=== PATIENT | male | born 1975 | race Caucasian/White ===

== ENCOUNTER 2018-07-27 17:51 | Inpatient (IN) ==
--- OUTSIDE RECORDS SUMMARY | 2018-07-27 17:55 | External Medical Summary | Continuity of Care Document ---
:1975 Author Name Rin Colin Address Unavailable Unavailable , Care Team Providers Name Role Phone NonMNPG MJose Unavailable [email or web address] [email or web address] Unavailable Unavailable Unavailable Unavailable Unavailable Problems Memory loss (780.93) (R41.3) Urinary frequency (788.41) (R35.0) Dysuria (788.1) (R30.0) UTI (urinary tract infection) (599.0) (N39.0) Nephrolithiasis (592.0) (N20.0) Strain Of Biceps Tendon (840.8) Degeneration of cervical intervertebral disc (722.4) (M50.30 ) Tremor (781.0) (R25.1) Arthritis (716.90) (M19.90) Psychological disorder (300.9) (F99) Kidney disease (593.9) (N28.9) Depression (311) (F32.9) Generalized anxiety disorder (300.02) (F41.1) Psoriatic arthropathy (696.0) (L40.50) Rheumatoid arthritis (714.0) (M06.9) Allergies and Adverse Reactions No Known Drug Allergies (Allergy) Bee sting (Allergy) Fish (Allergy) Medications Ibuprofen TABS Refills: 0 Citalopram Hydrobromide 10 MG Oral Tablet; TAKE 1 TABLET TERRI LY. Refills: 0 Procedures History of Knee Surgery Status: Complete d History of Shoulder Surgery Status: Comp leted History of Cholecystectomy Status: Compl eted History of Heart Surgery Status: Complet ed History of Renal Lithotripsy Status: Com pleted History of Kidney Surgery Status: Comple cole Immunizations Immunizations not documented Family History Mother Family history of diabetes mellitus (V18.0) (Z83.3) Status: Active Father Family history of hypertension (V17.49) (Z82.49) Status: Act charles Family history of kidney stones (V18.69) (Z84.1) Status: Act charles Grandfather Family history of malignant neoplasm (V16.9) (Z80.9) Status: Active Family history of cardiac disorder (V17.49) (Z82.49) Status: Active aunt Family history of malignant neoplasm (V16.9) (Z80.9) Status: Active Social History - Smoking Status Former smoker Plan of Treatment Planned Observations Planned Goals not documented Results No Known Results Results not documented
[2018-07-27] MEDS ORDERED: MoRPHine SULFATE 4 MG/ML 1 ML CARP\\VIAL IV STA ×2 (18:55→21:33)
[2018-07-27] MEDS ORDERED: ONDANSETRON INJ 2 MG/ML 2 ML VIAL IV STA (18:55)
[2018-07-27 19:18] LABS: Appearance Urine Clear (Clear); Basophils # (auto) 0.06 K/uL (0-0.2); Basophils % (auto) 0.5 %; Bilirubin Urine Negative (Negative); Blood Urine Negative (Negative); Color Urine Yellow; Eosinophils % (auto) 5.4 %; Glucose Urine UA Negative (Negative); Hematocrit (blood only) 41.2 % (42-52); Hemoglobin 14.7 g/dL (14.0-18.0); Immature Granulocytes # (auto) 0.08 K/uL (0.00-0.02); Immature Granulocytes % (auto) 0.7 %; Ketones Urine Negative (Negative); Leukocyte Esterase Urine Negative (Negative); Lymphocytes # (auto) 2.21 K/uL (1.2-3.4); Lymphocytes % (auto) 19.9 %; Mean Corpuscular Hgb Conc 35.7 g/dL (32-36); Mean Corpuscular Volume 90.5 fL (80-100); Mean Platelet Volume 9.2 fL (7.4-10.4); Monocytes % (auto) 6.3 %; Neutrophils # (auto) 7.43 K/uL (1.4-6.5); Neutrophils % (auto) 67.2 %; Nitrite Urine Negative (Negative); Platelet Count 223 K/uL (130-400); Protein Urine Negative (Negative); RDW Coefficient of Variation 13.4 % (11.5-14.5); RDW Standard Deviation 44.2 fL (36.4-46.3); Red Blood Count 4.55 M/uL (4.7-6.1); Specific Gravity Urine 1.025 (1.000-1.030); Urobilinogen Urine Negative (Negative); White Blood Count 11.08 K/uL (4.8-10.8); pH Urine 5.5 (4.5-7.5)
[2018-07-27 20:27] LABS: Albumin Globulin Ratio 1.3 (0.9-2); Albumin Level 3.8 gm/dl (3.4-5.0); BUN Creatinine Ratio 18.3 (10-20); Bilirubin,Total 0.4 mg/dl (0.2-1); Calcium 9.2 mg/dl (8.5-10.1); Creatinine Clr Calc Pharmacy 86.4 ml/min; Est GFR (African American) 77.8; Est GFR (Non-African American) 67.1; Total Protein 6.8 gm/dl (6.4-8.2)
[2018-07-27] MEDS ORDERED: IOVERSOL 100ml IV PRN (21:09)
--- NOTE | 2018-07-27 21:28 | CT Scan Report ---
CT OF THE ABDOMEN AND PELVIS WITH CONTRAST CLINICAL HISTORY: Left lower quadrant pain. GI bleed. COMPARISON STUDY: CT of the abdomen and pelvis December 11, 2013. TECHNIQUE: Following IV administration of 95 mL of Optiray-320, axial images of the abdomen and pelvi s were obtained from the lung bases to the proximal femurs. Images were reviewed in the axial, sagitt al, and coronal planes. IV contrast was administered without complication. Automated exposure contro l was utilized for the study. A dose lowering technique was utilized adhering to the principles of A MAJO. CT DOSE: 568.04 mGy.cm FINDINGS: Lung bases are unremarkable. The liver, spleen, adrenal glands and pancreas are unremarkabl e. There is no biliary ductal dilatation status post cholecystectomy. A few small left renal calculi measure up to 3 mm. There are no ureteral. There is no hydronephrosis or hydroureter. Colonic diverti culosis is noted without evidence for acute diverticulitis. The caliber and wall thickness of small a nd large bowel are normal. Sensitivity for detection of mucosal lesions is diminished by CT technique but none are identified. No lymphadenopathy or ascites. Focal dilatation of the distal right ureter is unchanged and CT of December 11, 2013. No suspicious osseous lesion is noted. Major vasculature is patent. IMPRESSION: 1. No acute process within the abdomen or pelvis. 2. Decreased sensitivity for detection mucosal lesions given CT technique but none identified. 3. Left-sided nephrolithiasis. No ureteral calculi or hydronephrosis. Electronically signed by: Stevo Rowland M.D. 07/27/2018 9:27 PM
[2018-07-27] MEDS ORDERED: PANTOprazole 80 MG in DEXTROSE 5% 100 ML IV SCH (23:00)
[2018-07-27] MEDS: PANTOprazole 40 MG in DEXTROSE 5% 100 ML IV SCH (23:10)
--- NOTE | 2018-07-27 23:35 | Emergency Department Note ---
Entered by Jacinta Silveira acting as a scribe for History of Present Illness General Chief complaint: GI Assessment Stated complaint: BLOOD IN STOOL Source: patient Mode of arrival: ambulatory Limitations: no limitations History of Present Illness Provider complaint: Rectal bleed Onset (ago): day(s) (yesterday) Location: buttocks (rectum) Radiation: non-radiation Pain Consistency: + other (worsening) Maximum Pain Intensity: 5 Quality: + other (bleeding bright red blood) Associated symptoms: + other (Denies: melena, painful and burning urination); no chest pain and no shortness of breath The patient is a 43 year old male with a history of seizures who presents to the Emergency Room with complaints of a worsening rectal bleed starting yesterday. The patient reports that he went to have a bowel movement yesterday morning when very little stool came out, accompanied by bright red blood with blood clots. He notes that he did not strain. He states that he experienced a total of 5-6 such episodes yesterday and another 5 today. He reports that he has never experienced this before. He indicates [facility] and was subsequently referred to the ED. He denies any melena, chest pain, shortness of breath, and painful and burning urination. He also denies a history of stomach ulcers. The patient notes that he takes anywhere from 800-160 mg Ibuprofen daily. He adds that he is currently on his sixth day of Prednisone for a bronchial flare. Home Medications Home Medications Medication Instructions Recorded Confirmed Type carbamazepine 300 mg PO TID 07/27/18 07/27/18 History citalopram 40 mg PO QAM 07/27/18 07/27/18 History gabapentin 300 mg PO TID 07/27/18 07/27/18 History ibuprofen 200 mg PO Q6H PRN 07/27/18 07/27/18 History prazosin 2 mg PO HS 07/27/18 07/27/18 History Allergies Allergy/AdvReac Type Severity Reaction Status Date / Time bee venom protein (honey bee) Allergy Severe ANAPHYLACTIC Verified 07/27/18 19:11 REACTION-HAS EPIPEN AVAILABLE tuna oil Allergy Intermediate SWELLING, Verified 07/27/18 19:11 HIVES Past Med/Surg History Medical History Pseudoseizure (Acute) Seizure (Acute) Seizure disorder in , delivered with condition (Acute) Social History Preferred Language: Nepali Communication Ability: Effective Lead Data Entry Operator Required: No Beliefs That Will Affect Care: None marital status: single Current Living Situation: Spouse current occupational status: employed Feels Safe at Home: Yes Safety Concerns: Feels Safe At This Time Smoking Status: Never smoker Hx Alcohol Use: No Hx Substance Use: No Review of Systems See HPI for pertinent positives & negatives. and A total of 10 systems reviewed and were otherwise negative Physical Exam Vital Signs Vital Signs - 24 hr 07/27/18 18:10 07/27/18 19:10 07/27/18 19:14 Temperature 36.8 C Temperature Source Oral Sepsis Recent Fever Within 48 Hours No Sepsis Action Taken by Nursing No Action Required Pulse Rate 87 84 90 Pulse Rate from SpO2 Sensor 83 90 Pulse Rhythm Regular Pulse Strength Normal Respiratory Rate 20 21 14 Respiratory Effort / Characteristics Non-Labored Spontaneous Respiratory Depth Normal Respiratory Pattern Regular Blood Pressure 153/80 H 141/77 H Blood Pressure Mean 104 98 Blood Pressure Position Sitting Pulse Oximetry 98 95 96 Oxygen Delivery Method Room Air 07/27/18 19:30 07/27/18 19:31 07/27/18 20:00 Temperature Temperature Source Sepsis Recent Fever Within 48 Hours Sepsis Action Taken by Nursing Pulse Rate 74 78 87 Pulse Rate from SpO2 Sensor 75 80 88 Pulse Rhythm Pulse Strength Respiratory Rate 18 22 19 Respiratory Effort / Characteristics Respiratory Depth Respiratory Pattern Blood Pressure 128/75 136/83 Blood Pressure Mean 92 100 Blood Pressure Position Pulse Oximetry 93 93 97 Oxygen Delivery Method 07/27/18 20:30 07/27/18 21:00 07/27/18 21:30 Temperature Temperature Source Sepsis Recent Fever Within 48 Hours Sepsis Action Taken by Nursing Pulse Rate 71 Pulse Rate from SpO2 Sensor 83 81 73 Pulse Rhythm Pulse Strength Respiratory Rate 31 H 27 H 17 Respiratory Effort / Characteristics Respiratory Depth Respiratory Pattern Blood Pressure 125/75 126/79 118/68 Blood Pressure Mean 91 94 84 Blood Pressure Position Pulse Oximetry 96 97 95 Oxygen Delivery Method 07/27/18 21:31 07/27/18 22:00 07/27/18 22:01 Temperature Temperature Source Sepsis Recent Fever Within 48 Hours Sepsis Action Taken by Nursing Pulse Rate 73 72 74 Pulse Rate from SpO2 Sensor 73 74 75 Pulse Rhythm Pulse Strength Respiratory Rate 20 22 24 Respiratory Effort / Characteristics Respiratory Depth Respiratory Pattern Blood Pressure 125/84 Blood Pressure Mean 97 Blood Pressure Position Pulse Oximetry 96 94 94 Oxygen Delivery Method 07/27/18 22:30 Temperature Temperature Source Sepsis Recent Fever Within 48 Hours Sepsis Action Taken by Nursing Pulse Rate 78 Pulse Rate from SpO2 Sensor 78 Pulse Rhythm Pulse Strength Respiratory Rate 21 Respiratory Effort / Characteristics Respiratory Depth Respiratory Pattern Blood Pressure 135/88 Blood Pressure Mean 103 Blood Pressure Position Pulse Oximetry 96 Oxygen Delivery Method GENERAL: sitting up in bed, alert, well appearing, well nourished, no distress, non-toxic EYE EXAM: normal conjunctiva OROPHARYNX: no exudate, no erythema, lips, buccal mucosa, and tongue normal and mucous membranes are moist NECK: supple, no nuchal rigidity, no adenopathy, non-tender LUNGS: Clear to auscultation. Normal chest wall mechanics HEART: no murmurs, S1 normal and S2 normal ABDOMEN: abdomen soft, normo-active bowel sounds, no masses, no rebound or guarding. Tender to palpation of the left lower quadrant. BACK: Back is symmetrical on inspection and there is no deformity, no midline tenderness, no CVA tenderness. RECTAL: Heme positive, no hemorrhoids or fissures. SKIN: no rashes and no bruising UPPER EXTREMITIES: upper extremities are grossly normal. LOWER EXTREMITIES: No pitting edema. NEURO EXAM: Normal sensorium, cranial nerves II-XII grossly intact, normal speech, no gross weakness of arms, no gross weakness of legs. Course ED COURSE: Vital signs were reviewed and were normal. The patients medical record was reviewed The above diagnostic studies were performed and reviewed. ED treatments and interventions as stated above. 1842: The patient was evaluated in room C6. A complete history and physical examination was performed. 2203: I reviewed the patient's case with Timothy Soto. Dr. Swain will evaluate the patient for further management. Based on the patients age, coexisting illnesses, exam and lab findings the decision to treat as an inpatient was made. The patient remained stable while under my care. The patient will be evaluated for further management. Consultations Consultation #1: I reviewed the patient's case with Timothy Soto. Dr. Swain will evaluate the patient for further management. Time: 22:04 Administered Medications Pantoprazole Sodium 40 mg/ (Dextrose) 100 mls @ 20 mls/hr IV Q5H [facility] Stop: 08/26/18 23:14 Last Admin: 07/27/18 23:10 Dose: 20 mls/hr Documented by: [id number] Ioversol (Optiray 320 100ml) 95 ml IV ONCE PRN PRN Reason: Interaction Checking Stop: 07/31/18 21:08 Last Admin: 07/27/18 21:10 Dose: 1 ml Documented by: [id number] Discontinued Medications Pantoprazole Sodium 80 mg/ (Dextrose) 120 mls @ 480 mls/hr IV TODAY@2300 SHALINI Stop: 07/27/18 23:14 Last Admin: 07/27/18 23:10 Dose: 480 mls/hr Documented by: [id number] Morphine Sulfate (Morphine Sulfate) 4 mg IV NOW STA Stop: 07/27/18 18:56 Last Admin: 07/27/18 19:13 Dose: 4 mg Documented by: [id number] Morphine Sulfate (Morphine Sulfate) 4 mg IV NOW STA Stop: 07/27/18 21:34 Last Admin: 07/27/18 21:39 Dose: 4 mg Documented by: [id number] Ondansetron HCl (Zofran) 4 mg IV NOW STA Stop: 07/27/18 18:56 Last Admin: 07/27/18 19:13 Dose: 4 mg Documented by: [id number] Medical Decision Making Differential Diagnosis Differential diagnosis: Etiologies such as diverticulosis, AVM, coagulopathy, colitis, inflammatory bowel disease, malignancy, Carli-Perez tear, esophagitis, peptic ulcer disease, variceal bleed, gastritis, epistaxis, fissure, hemorrhoids, aswell as others were entertained. Medical Records Attestation: I reviewed the patient's medical records. Home Medications Current Medication List: was personally reviewed by me Laboratory Data Attestation: I reviewed the patient's lab results. Result diagrams: 07/27/18 19:08 07/27/18 19:08 Lab Results 07/27/18 07/27/18 07/27/18 Range/Units 19:08 19:08 19:08 WBC 11.08 H (4.8-10.8) K/uL RBC 4.55 L (4.7-6.1) M/uL Hgb 14.7 (14.0-18.0) g/dL Hct 41.2 L (42-52) % MCV 90.5 (80-100) fL MCH 32.3 (25-34) pg MCHC 35.7 (32-36) g/dL RDW Std Deviation 44.2 (36.4-46.3) fL RDW Coeff of Karen 13.4 (11.5-14.5) % Plt Count 223 (130-400) K/uL MPV 9.2 (7.4-10.4) fL Immature Gran % (Auto) 0.7 % Neut % (Auto) 67.2 % Lymph % (Auto) 19.9 % Furnas % (Auto) 6.3 % Eos % (Auto) 5.4 % Baso % (Auto) 0.5 % Immature Gran # (Auto) 0.08 H (0.00-0.02) K/uL Neut # (Auto) 7.43 H (1.4-6.5) K/uL Lymph # (Auto) 2.21 (1.2-3.4) K/uL Furnas # (Auto) 0.70 H (0.11-0.59) K/uL Eos # (Auto) 0.60 H (0-0.5) K/uL Baso # (Auto) 0.06 (0-0.2) K/uL Sodium 143 (136-145) mmol/L Potassium (3.5-5.1) mmol/L Chloride 109 H (98-107) mmol/L Carbon Dioxide 25 (21-32) mmol/L Anion Gap 9.0 (3-11) BUN 23 H (7-18) mg/dl Creatinine 1.28 (0.6-1.4) mg/dl Est Cr Clr Drug Dosing 86.4 ml/min Est GFR ( Amer) 77.8 Est GFR (Non-Af Amer) 67.1 BUN/Creatinine Ratio 18.3 (10-20) Glucose 118 H (70-99) mg/dl Calcium 9.2 (8.5-10.1) mg/dl Total Bilirubin 0.4 (0.2-1) mg/dl AST (15-37) U/L ALT 51 (12-78) U/L Alkaline Phosphatase 85 (45-117) U/L Total Protein 6.8 (6.4-8.2) gm/dl Albumin 3.8 (3.4-5.0) gm/dl Globulin 3.0 (2.5-4.0) gm/dl Albumin/Globulin Ratio 1.3 (0.9-2) Lipase 208 (73-393) U/L Urine Color Yellow Urine Appearance Clear (Clear) Urine pH 5.5 (4.5-7.5) Ur Specific Cobalt 1.025 (1.000-1.030) Urine Protein Negative (Negative) Urine Glucose (UA) Negative (Negative) Urine Ketones Negative (Negative) Urine Blood Negative (Negative) Urine Nitrite Negative (Negative) Urine Bilirubin Negative (Negative) Urine Urobilinogen Negative (Negative) Ur Leukocyte Esterase Negative (Negative) 07/27/18 07/27/18 Range/Units 20:35 21:39 WBC (4.8-10.8) K/uL RBC (4.7-6.1) M/uL Hgb (14.0-18.0) g/dL Hct (42-52) % MCV (80-100) fL MCH (25-34) pg MCHC (32-36) g/dL RDW Std Deviation (36.4-46.3) fL RDW Coeff of Karen (11.5-14.5) % Plt Count (130-400) K/uL MPV (7.4-10.4) fL Immature Gran % (Auto) % Neut % (Auto) % Lymph % (Auto) % Furn[place] % (Auto) % Eos % (Auto) % Baso % (Auto) % Immature Gran # (Auto) (0.00-0.02) K/uL Neut # (Auto) (1.4-6.5) K/uL Lymph # (Auto) (1.2-3.4) K/uL Furnas # (Auto) (0.11-0.59) K/uL Eos # (Auto) (0-0.5) K/uL Baso # (Auto) (0-0.2) K/uL Sodium (136-145) mmol/L Potassium Cancelled Cancelled (3.5-5.1) mmol/L Chloride (98-107) mmol/L Carbon Dioxide (21-32) mmol/L Anion Gap (3-11) BUN (7-18) mg/dl Creatinine (0.6-1.4) mg/dl Est Cr Clr Drug Dosing ml/min Est GFR ( Amer) Est GFR (Non-Af Amer) BUN/Creatinine Ratio (10-20) Glucose (70-99) mg/dl Calcium (8.5-10.1) mg/dl Total Bilirubin (0.2-1) mg/dl AST Cancelled Cancelled (15-37) U/L ALT (12-78) U/L Alkaline Phosphatase (45-117) U/L Total Protein (6.4-8.2) gm/dl Albumin (3.4-5.0) gm/dl Globulin (2.5-4.0) gm/dl Albumin/Globulin Ratio (0.9-2) Lipase (73-393) U/L Urine Color Urine Appearance (Clear) Urine pH (4.5-7.5) Ur Specific Cobalt (1.000-1.030) Urine Protein (Negative) Urine Glucose (UA) (Negative) Urine Ketones (Negative) Urine Blood (Negative) Urine Nitrite (Negative) Urine Bilirubin (Negative) Urine Urobilinogen (Negative) Ur Leukocyte Esterase (Negative) Imaging Data Radiologist's Impression: Radiology results as stated below per my review and the radiologist's interpretation: CT OF THE ABDOMEN AND PELVIS WITH CONTRAST CLINICAL HISTORY: Left lower quadrant pain. GI bleed. COMPARISON STUDY: CT of the abdomen and pelvis December 11, 2013. TECHNIQUE: Following IV administration of 95 mL of Optiray-320, axial images of the abdomen and pelvis were obtained from the lung bases to the proximal femurs. Images were reviewed in the axial, sagittal, and coronal planes. IV contrast was administered without complication. Automated exposure control was utilized for the study. A dose lowering technique was utilized adhering to the principles of ALARA. CT DOSE: 568.04 mGy.cm FINDINGS: Lung bases are unremarkable. The liver, spleen, adrenal glands and pancreas are unremarkable. There is no biliary ductal dilatation status post cholecystectomy. A few small left renal calculi measure up to 3 mm. There are no ureteral. There is no hydronephrosis or hydroureter. Colonic diverticulosis is noted without evidence for acute diverticulitis. The caliber and wall thickness of small and large bowel are normal. Sensitivity for detection of mucosal lesions is diminished by CT technique but none are identified. No lymphadenopathy or ascites. Focal dilatation of the distal right ureter is unchanged and CT of December 11, 2013. No suspicious osseous lesion is noted. Major vasculature is patent. IMPRESSION: 1. No acute process within the abdomen or pelvis. 2. Decreased sensitivity for detection mucosal lesions given CT technique but none identified. 3. Left-sided nephrolithiasis. No ureteral calculi or hydronephrosis. Electronically signed by: Stevo Rowland M.D. 07/27/2018 9:27 PM Blood Pressure Blood Pressure Findings: Normal blood pressure MDM Narrative Patient is a 43-year-old male who presents the ER for bright red blood per rectum which started yesterday. He has had a total of 10-12 episodes of this. He notes about 3 tablespoons to a half a cup of bright red blood. No dark tarry stools. Patient has pain in the left lower quadrant. Labs show no significant leukocytosis or anemia. BMP with LFTs bilirubin and lipase was unremarkable. U A was negative. CT abdomen pelvis shows no acute pathology. Patient was given IV fluids. She was updated bedside. Due to the recurrent bright red blood per rectum I did discuss with hospitalist for observation. Impression & Plan GI bleed Discharge Plan Visit Data Chief Complaint: GI Assessment Stated Complaint: BLOOD IN STOOL ED Provider: Fabián Martins Discharge Problem: GI bleed Patient Disposition: Admitted As Inpatient Forms Stand Alone Forms: My [facility] Prescriptions Prescriptions: No Action citalopram 20 mg tablet 40 mg PO QAM RF: 0 ibuprofen 200 mg Tablet 200 mg PO Q6H PRN (Reason: Pain) RF: 0 prazosin 2 mg capsule 2 mg PO HS RF: 0 carbamazepine 300 mg capsule, ER multiphase 12 hr 300 mg PO TID RF: 0 gabapentin 300 mg capsule 300 mg PO TID RF: 0 Referrals Referrals: Aldo Brooke MD [Primary Care Provider] - Discharge Problem: GI bleed Qualifiers: GI bleed type/associated pathology: unspecified gastrointestinal hemorrhage type Qualified Code(s): K92.2 - Gastrointestinal hemorrhage, unspecified The scribe's documentation has been prepared under my direction and personally reviewed by me in its entirety. I confirm that the note above accurately reflects all work, treatment, procedures, and medical decision making performed by me.
--- NOTE | 2018-07-28 00:26 | History and Physical Report ---
DATE OF ADMISSION: 07/27/2018 CHIEF COMPLAINT: Gastrointestinal bleed. HISTORY OF PRESENT ILLNESS: This is a 43-year-old male with past medical history significant for psoriatic arthropathy, post-traumatic stress disorder and spondylosis of lumbar region who presents with lower gastrointestinal bleed since starting yesterday morning. He states he has multiple episodes of blood per rectum. He has chronic left lower abdominal pain. He had a colonoscopy 10 years ago and it was a poor prep and they could not find anything and he has chronic back pain and knee pain for which he takes ibuprofen frequently 800 mg tablets. Denies any black stools. No nausea or vomiting. Before this episode started, he felt somewhat chills, but denies any fever. He has a cough with yellowish phlegm. He smokes 1 pack of cigarette a week. Drinks alcohol, a couple of beers on the weekends. Denies any headache. No blurred vision. No sore throat. No difficulty swallowing. No chest pain. No shortness of breath. No swelling in the legs. No rash. He states lately he thinks he is bruising easily. Currently, resting comfortably and hemodynamically stable. His laboratories were okay. ALLERGIES: BEE VENOM , TUNA OIL PAST MEDICAL HISTORY: As mentioned above. PAST SURGICAL HISTORY: Status post cardiac catheterization, colonoscopy, EMGs, lithotripsy, knee arthroscopy, cholecystectomy and shoulder arthroscopy. MEDICATIONS: The patient is on gabapentin 300 mg p.o. t.i.d., ibuprofen p.r.n., prazosin 2 mg p.o. at bedtime, carbamazepine 200 mg t.i.d. and citalopram 40 mg p.o. daily. FAMILY HISTORY: Significant for father has psoriasis. Mother has psoriasis. Sister has psoriasis. SOCIAL HISTORY: Smokes 1 pack every week. Alcohol, a couple of beers in the weekends. No drug use as per records. REVIEW OF SYMPTOMS: As per HPI. Rest of the review of symptoms negative. PHYSICAL EXAMINATION: GENERAL: The patient is of moderate build, not in acute distress. VITAL SIGNS: Temperature 36.8, pulse 71, respiratory rate 21, blood pressure 118/68 and oxygen 95% on room air. HEENT: No pallor. No icterus. Pupils are equal, round and reactive to light. NECK: No JVD. No neck masses. No carotid bruit. CARDIOVASCULAR: S1, S2 heard. Regular rate and rhythm. No murmur. No gallop. RESPIRATORY SYSTEM: Normal AP diameter. No accessory muscle use. No wheezing. No crackles. ABDOMEN: Soft. Bowel sounds present. Left lower quadrant tenderness present. Mild guarding. No rigidity. No distention. CENTRAL NERVOUS SYSTEM: Cranial nerves II through XII grossly intact. Nonfocal. EXTREMITIES: No edema. No erythema. LABORATORY DATA: WBC 11.08, hemoglobin 14.7, hematocrit 41.2 and platelets 223. Sodium 143, chloride 109, CO2 of 25, BUN 23, creatinine 1.2, serum glucose 118, calcium 9.2, total bilirubin 0.4, ALT 51, alkaline phosphatase 85, total protein 6.8 and lipase 208. Urinalysis negative. CT abdomen and pelvis, no acute process left-sided nephrolithiasis, no hydronephrosis. ASSESSMENT AND PLAN: This is a 43-year-old male who presents with lower gastrointestinal bleed. 1. Bright red per rectum since yesterday, chronic lower abdominal pain CAT scan done in the Emergency Room was unremarkable. He is taking ibuprofen for his chronic back pain and knee pain and also took prednisone a couple of weeks ago for bronchitis for 6 days course. Differential diagnoses of possible gastric ulcer, diverticular bleed versus irritable bowel syndrome. Currently, hemoglobin is stable. We got blood consent. We will check hemoglobin and hematocrit q. 6 hours, I.V. fluids, n.p.o., I.V. Protonix drip for now and consult Gastroenterology in a.m. and monitor in Med/Surg Tele. 2. Spondylosis of lumbar region without myelopathy, chronic back pain. Continue his home gabapentin . Advised to avoid nsaids. 3. Posttraumatic stress disorder. Continue Celexa and carbamazepine. 4. History of urinary frequency on prazosin 5. Deep venous thrombosis, sequential compression devices for now. 6. Disposition: Admit to Med/Surg Tele. Level 1 full code. MTDD
[2018-07-28] MEDS ORDERED: ACETAMINOPHEN 325 MG TAB PO PRN (00:43)
[2018-07-28] MEDS ORDERED: NITROGLYCERIN SL 0.4 MG/TAB TAB SL PRN (00:43)
[2018-07-28] MEDS ORDERED: ONDANSETRON INJ 2 MG/ML 2 ML VIAL IV PRN (00:43)
[2018-07-28] MEDS: SODIUM CHLORIDE 0.9% 1000ML 1,000 ML IV SCH ×2 (01:21→11:34)
[2018-07-28] MEDS: PANTOprazole 40 MG in DEXTROSE 5% 100 ML IV SCH ×2 (01:21→09:09)
[2018-07-28] MEDS: MoRPHine SULFATE 2 MG/ML CARP IV PRN ×4 (01:30→21:36)
[2018-07-28 08:21] LABS: Basophils # (auto) 0.06 K/uL (0-0.2); Basophils % (auto) 0.8 %; Eosinophils # (auto) 0.32 K/uL (0-0.5); Hematocrit (blood only) 42.2 % (42-52); Hemoglobin 14.3 g/dL (14.0-18.0); Immature Granulocytes # (auto) 0.05 K/uL (0.00-0.02); Immature Granulocytes % (auto) 0.6 %; Lymphocytes % (auto) 25.2 %; Mean Corpuscular Hgb Conc 33.9 g/dL (32-36); Mean Corpuscular Volume 91.5 fL (80-100); Mean Platelet Volume 9.1 fL (7.4-10.4); Monocytes # (auto) 0.66 K/uL (0.11-0.59); Monocytes % (auto) 8.3 %; Neutrophils # (auto) 4.84 K/uL (1.4-6.5); Neutrophils % (auto) 61.1 %; Platelet Count 192 K/uL (130-400); RDW Coefficient of Variation 13.5 % (11.5-14.5); RDW Standard Deviation 44.5 fL (36.4-46.3); Red Blood Count 4.61 M/uL (4.7-6.1); White Blood Count 7.93 K/uL (4.8-10.8)
[2018-07-28] MEDS: GABAPENTIN 300 MG CAP PO SCH ×3 (08:32→20:44)
[2018-07-28 08:33] LABS: Partial Thromboplastin Ratio 0.9; Partial Thromboplastin Time 23.9 Seconds (21.0-31.0); Prothrombin Time 10.3 Seconds (9.0-12.0)
[2018-07-28] MEDS: CARBAMAZEPINE 100 MG CHEW TAB PO SCH ×3 (08:33→20:45)
[2018-07-28] MEDS: CITALOPRAM 20 MG TAB PO SCH (08:33)
[2018-07-28 08:39] LABS: BUN Creatinine Ratio 16.3 (10-20); Creatinine Clr Calc Pharmacy 85.8 ml/min; Est GFR (African American) 78.6; Est GFR (Non-African American) 67.8; Magnesium 2.2 mg/dl (1.8-2.4); Potassium 4.7 mmol/L (3.5-5.1)
--- NOTE | 2018-07-28 09:07 | History & Physical Report ---
Date of Service July 28, 2018 Assessment & Plan (1) Hematochezia: Patient presenting with several days of hematochezia. Of note the patient has had no significant drop in his blood counts since evaluation, in fact his blood count appears to have increased slightly since admission. This suggests that the patient likely has an anorectal etiology such as internal hemorrhoids causing his hematochezia. We are certainly happy to proceed with colonoscopy on Monday to evaluate for evidence of an occult lesion such as underlying malignancy. I discussed the plan with the patient who is in agreement. I would suggest that the patient be on MiraLAX 17 g 3 times today in addition to a full liquid diet until Monday at which time he would then begin a regular bowel preparation. Recommendations No need for IV Protonix from my perspective MiraLAX 17 g 3 times today Patient may have a full liquid diet Bowel preparation on Monday afternoon for colonoscopy on Monday with Dr. Garcia Please call with any questions or concerns History of Present Illness Chief Complaint: Hematochezia Primary Care Provider: Aldo Brooke MD The patient is a 43-year-old male who presents with 48 hours of intermittent hematochezia. The patient states he was is in his usual state of health until when he began to develop bright red blood with bowel movements. He notes having a significant amount of blood with stool only during bowel movements. Occasionally he is noted some clots with the stool. Over the night the patient has had no recurrence of his hematochezia. There is no family history of stomach cancer colon cancer esophageal cancer. The patient does recall having an attempt at a colonoscopy about 10 years ago for symptoms of abdominal discomfort. He notes at that examination was incomplete. Unfortunately we have no records available with regard to this study. The patient's surgical history is notable for a cholecystectomy which was performed approximately 15 years ago for complications associated with abdominal discomfort. The patient denies having dark sticky stool or abdominal discomfort today. Allergies Allergy/AdvReac Type Severity Reaction Status Date / Time bee venom protein (honey bee) Allergy Severe ANAPHYLACTIC Verified 07/27/18 19:11 REACTION-HAS EPIPEN AVAILABLE tuna oil Allergy Intermediate SWELLING, Verified 07/27/18 19:11 HIVES Home Medications Home Medications Medication Instructions Recorded Confirmed Type carbamazepine 300 mg PO TID 07/27/18 07/27/18 History citalopram 40 mg PO QAM 07/27/18 07/27/18 History gabapentin 300 mg PO TID 07/27/18 07/27/18 History ibuprofen 200 mg PO Q6H PRN 07/27/18 07/27/18 History prazosin 2 mg PO HS 07/27/18 07/27/18 History Past Med/Surg History Medical History Pseudoseizure (Acute) Seizure (Acute) Seizure disorder in , delivered with condition (Acute) Social History Preferred Language: Azerbaijani Communication Ability: Effective Torpedo Specialist Required: No Beliefs That Will Affect Care: None marital status: single Current Living Situation: Significant Other current occupational status: employed Feels Safe at Home: Yes Safety Concerns: Feels Safe At This Time Smoking Status: Current some day smoker Tobacco Type: smokeless tobacco Cigarettes Per Day: 3 Do You Dip or Chew Tobacco: Yes Hx Alcohol Use: Yes Alcohol type: beer, wine and hard liquor Hx Substance Use: No Review of Systems no sweats, no malaise and no weight loss no diplopia no ear pain and no tinnitus no change in sputum and no hemoptysis no chest pain with activity and no dyspnea at rest + cramping and + constipation; no bloating, no early satiety, no nausea, no vomiting, no hematemesis, no pain with swallowing, no fecal incontinence and no melena no urinary frequency + back pain and + radicular pain no rash no falls and no paralysis no hopelessness no polydipsia no easy bleeding, no coagulopathy and no unexplained weight loss no lip swelling, no tongue swelling and no cough Physical Exam Constitutional: well developed, well nourished and average body habitus; not ill appearing Eyes: PERRL, conjunctivae normal, anicteric sclerae Neck: trachea midline, no thyromegaly Respiratory: normal respiratory effort, lungs clear to auscultation Cardiovascular: RRR, no murmur, no edema Gastrointestinal (Abdomen): Inspection/Auscultation: abdomen not distended and no visible herniation Percussion/Palpation: abdomen soft; no guarding Skin: no rashes, warm and dry Neurologic: moves all extremities and awake; no focal motor deficits, not confused and not obtunded Psychiatric: Orientation: oriented x 3 Results & Data Vital Signs (Past 12 Hours) Vital Signs Temp Pulse Pulse Pulse Resp BP BP 07/28/18 07:43 66 07/28/18 07:23 36.6 C 75 16 102/63 07/27/18 23:52 36.8 C 96 H 21 132/82 07/27/18 23:18 36.8 C 71 16 146/90 H 07/27/18 22:30 78 21 135/88 07/27/18 22:01 74 24 07/27/18 22:00 72 22 125/84 07/27/18 21:31 73 20 07/27/18 21:30 71 17 118/68 07/27/18 21:00 27 H 126/79 Pulse Ox 07/28/18 07:43 07/28/18 07:23 97 07/27/18 23:52 96 07/27/18 23:18 97 07/27/18 22:30 96 07/27/18 22:01 94 07/27/18 22:00 94 07/27/18 21:31 96 07/27/18 21:30 95 07/27/18 21:00 97 Laboratory Results Laboratory Results - last 24 hr 07/27/18 07/27/18 07/27/18 19:08 19:08 19:08 WBC 11.08 H RBC 4.55 L Hgb 14.7 Hct 41.2 L MCV 90.5 MCH 32.3 MCHC 35.7 RDW Std Deviation 44.2 RDW Coeff of Karen 13.4 Plt Count 223 MPV 9.2 Immature Gran % (Auto) 0.7 Neut % (Auto) 67.2 Lymph % (Auto) 19.9 Ward % (Auto) 6.3 Eos % (Auto) 5.4 Baso % (Auto) 0.5 Immature Gran # (Auto) 0.08 H Neut # (Auto) 7.43 H Lymph # (Auto) 2.21 Ward # (Auto) 0.70 H Eos # (Auto) 0.60 H Baso # (Auto) 0.06 PT INR APTT PTT Ratio Sodium 143 Potassium Chloride 109 H Carbon Dioxide 25 Anion Gap 9.0 BUN 23 H Creatinine 1.28 Est Cr Clr Drug Dosing 86.4 Est GFR ( Amer) 77.8 Est GFR (Non-Af Amer) 67.1 BUN/Creatinine Ratio 18.3 Glucose 118 H Calcium 9.2 Magnesium Total Bilirubin 0.4 AST ALT 51 Alkaline Phosphatase 85 Total Protein 6.8 Albumin 3.8 Globulin 3.0 Albumin/Globulin Ratio 1.3 Lipase 208 Urine Color Yellow Urine Appearance Clear Urine pH 5.5 Ur Specific [place] 1.025 Urine Protein Negative Urine Glucose (UA) Negative Urine Ketones Negative Urine Blood Negative Urine Nitrite Negative Urine Bilirubin Negative Urine Urobilinogen Negative Ur Leukocyte Esterase Negative 07/27/18 07/27/18 07/28/18 20:35 21:39 08:14 WBC 7.93 RBC 4.61 L Hgb 14.3 Hct 42.2 MCV 91.5 MCH 31.0 MCHC 33.9 RDW Std Deviation 44.5 RDW Coeff of Karen 13.5 Plt Count 192 MPV 9.1 Immature Gran % (Auto) 0.6 Neut % (Auto) 61.1 Lymph % (Auto) 25.2 Ward % (Auto) 8.3 Eos % (Auto) 4.0 Baso % (Auto) 0.8 Immature Gran # (Auto) 0.05 H Neut # (Auto) 4.84 Lymph # (Auto) 2.00 Ward # (Auto) 0.66 H Eos # (Auto) 0.32 Baso # (Auto) 0.06 PT INR APTT PTT Ratio Sodium Potassium Cancelled Cancelled Chloride Carbon Dioxide Anion Gap BUN Creatinine Est Cr Clr Drug Dosing Est GFR ( Amer) Est GFR (Non-Af Amer) BUN/Creatinine Ratio Glucose Calcium Magnesium Total Bilirubin AST Cancelled Cancelled ALT Alkaline Phosphatase Total Protein Albumin Globulin Albumin/Globulin Ratio Lipase Urine Color Urine Appearance Urine pH Ur Specific [place] Urine Protein Urine Glucose (UA) Urine Ketones Urine Blood Urine Nitrite Urine Bilirubin Urine Urobilinogen Ur Leukocyte Esterase 07/28/18 07/28/18 08:14 08:14 WBC RBC Hgb Hct MCV MCH MCHC RDW Std Deviation RDW Coeff of Karen Plt Count MPV Immature Gran % (Auto) Neut % (Auto) Lymph % (Auto) Ward % (Auto) Eos % (Auto) Baso % (Auto) Immature Gran # (Auto) Neut # (Auto) Lymph # (Auto) Ward # (Auto) Eos # (Auto) Baso # (Auto) PT 10.3 INR 1.0 APTT 23.9 PTT Ratio 0.9 Sodium 144 Potassium 4.7 Chloride 111 H Carbon Dioxide 28 Anion Gap 6.0 BUN 21 H Creatinine 1.27 Est Cr Clr Drug Dosing 85.8 Est GFR ( Amer) 78.6 Est GFR (Non-Af Amer) 67.8 BUN/Creatinine Ratio 16.3 Glucose 96 Calcium 9.0 Magnesium 2.2 Total Bilirubin AST ALT Alkaline Phosphatase Total Protein Albumin Globulin Albumin/Globulin Ratio Lipase Urine Color Urine Appearance Urine pH Ur Specific [place] Urine Protein Urine Glucose (UA) Urine Ketones Urine Blood Urine Nitrite Urine Bilirubin Urine Urobilinogen Ur Leukocyte Esterase Diagnostic Findings CT OF THE ABDOMEN AND PELVIS WITH CONTRAST CLINICAL HISTORY: Left lower quadrant pain. GI bleed. COMPARISON STUDY: CT of the abdomen and pelvis December 11, 2013. TECHNIQUE: Following IV administration of 95 mL of Optiray-320, axial images of the abdomen and pelvis were obtained from the lung bases to the proximal femurs. Images were reviewed in the axial, sagittal, and coronal planes. IV contrast was administered without complication. Automated exposure control was utilized for the study. A dose lowering technique was utilized adhering to the principles of ALARA. CT DOSE: 568.04 mGy.cm FINDINGS: Lung bases are unremarkable. The liver, spleen, adrenal glands and pancreas are unremarkable. There is no biliary ductal dilatation status post cholecystectomy. A few small left renal calculi measure up to 3 mm. There are no ureteral. There is no hydronephrosis or hydroureter. Colonic diverticulosis is noted without evidence for acute diverticulitis. The caliber and wall thickness of small and large bowel are normal. Sensitivity for detection of mucosal lesions is diminished by CT technique but none are identified. No lymphadenopathy or ascites. Focal dilatation of the distal right ureter is unchanged and CT of December 11, 2013. No suspicious osseous lesion is noted. Major vasculature is patent. IMPRESSION: 1. No acute process within the abdomen or pelvis. 2. Decreased sensitivity for detection mucosal lesions given CT technique but none identified. 3. Left-sided nephrolithiasis. No ureteral calculi or hydronephrosis.
[2018-07-28 11:11] LABS: Hematocrit (blood only) 41.4 % (42-52); Hemoglobin 14.1 g/dL (14.0-18.0)
--- NOTE | 2018-07-28 13:42 | Hospitalist Progress Note ---
Date of Service July 28, 2018 Assessment & Plan (1) Hematochezia: Presented with complaint of bright red blood per rectum-2 episode on /4 -5 episodes on Monday Vitals and H&H remained stable No further episode of GI bleed/no bowel movement since admission CT abdomen pelvis shows no acute pathology/colonic diverticulosis without any evidence of diverticulitis Appreciate input from GI Recommend to advance diet to full liquid Plan for colonoscopy on Monday07/30/2018 (2) GI bleed: Presented with bright red blood per rectum No report of dark stool or melena Patient has been taking Motrin/ibuprofen alternately 4 to 5 tablets a day-for chetan int/arthritic pain(history of psoriatic arthritis) No hematemesis noted, H&H stayed stable No GI bleeding since admission Patient was initially started with IV Protonix drip, will be discontinued as per GI recommendation Ordered p.o. Protonix daily Patient is counseled to avoid NSAIDs Can take Tylenol as needed for pain Scheduled for colonoscopy EGD on Monday CODE STATUS: Full code DVT prophylaxis: No risks, patient is ambulatory at baseline order for SCD and teds Disposition: Plan to discharge home possible Monday after colonoscopy if patient remains clinically stable Subjective Not had any bowel movement since admission, No nausea, diet advanced to full liquids, tolerating well Complains of left lower quadrant pain discomfort-which has been ongoing for past few weeks, No fever or chills Evaluated by GI team Plan for bowel prep on Monday, colonoscopy on Monday morning Physical Exam Constitutional: WD/WN, vitals as above no acute distress Eyes: PERRL, conjunctivae normal, anicteric sclerae ENMT: external ear and nose normal, oropharynx normal Neck: trachea midline, no thyromegaly Respiratory: normal respiratory effort, lungs clear to auscultation Cardiovascular: RRR, no murmur, no edema Gastrointestinal (Abdomen): Inspection/Auscultation: abdomen normal to inspection and normal bowel sounds; abdomen not distended Percussion/Palpation: abdomen soft; no guarding Mild left lower quadrant tenderness Musculoskeletal: no cyanosis or clubbing, extremities motor strength 5/5 Skin: no rashes, warm and dry Neurologic: PERRL, EOMI, accommodation nl, no face palsy, no dysarthria Psychiatric: A+Ox3, euthymic affect Results & Data Vital Signs (Past 12 Hours) Vital Signs Diagnostic Findings CT OF THE ABDOMEN AND PELVIS WITH CONTRAST CT DOSE: 568.04 mGy.cm FINDINGS: Lung bases are unremarkable. The liver, spleen, adrenal glands and pancreas are unremarkable. There is no biliary ductal dilatation status post cholecystectomy. A few small left renal calculi measure up to 3 mm. There are no ureteral. There is no hydronephrosis or hydroureter. Colonic diverticulosis is noted without evidence for acute diverticulitis. The caliber and wall thickness of small and large bowel are normal. Sensitivity for detection of mucosal lesions is diminished by CT technique but none are identified. No lymphadenopathy or ascites. Focal dilatation of the distal right ureter is unchanged and CT of December 11, 2013. No suspicious osseous lesion is noted. Major vasculature is patent. IMPRESSION: 1. No acute process within the abdomen or pelvis. 2. Decreased sensitivity for detection mucosal lesions given CT technique but none identified. 3. Left-sided nephrolithiasis. No ureteral calculi or hydronephrosis. Temp Pulse Pulse Resp BP Pulse Ox 07/28/18 11:26 36.8 C 77 18 121/76 92 07/28/18 07:43 66 07/28/18 07:23 36.6 C 75 16 102/63 97 (1) GI bleed GI bleed type/associated pathology: unspecified gastrointestinal hemorrhage type Qualified Code(s): K92.2 - Gastrointestinal hemorrhage, unspecified
[2018-07-28] MEDS: POLYETHYLENE (MIRALAX) 17 GM PACK PO SCH ×2 (14:54→20:42)
[2018-07-28] MEDS: PRAZOSIN HCL 1 MG CAP PO SCH (20:44)
--- NOTE | 2018-07-29 08:20 | Gastroenterology Progress Note ---
Date of Service July 29, 2018 Assessment & Plan (1) Hematochezia: Patient presenting with persistent hematochezia. Given the symptoms we will proceed with colonoscopy tomorrow. A bowel preparation has been ordered for this afternoon. Please call with any additional questions or concerns. Subjective Saw the patient briefly this morning. He notes some abdominal distention and did tolerate the MiraLAX yesterday without any difficulty. He is having a small amount of stool with bowel movements. He denies having any hematochezia this morning. Review of Systems Constitutional: no sweats and no malaise Respiratory: no hemoptysis Cardiovascular: no chest pain with activity and no dyspnea at rest Gastrointestinal: + bloating; no nausea and no hematemesis Physical Exam Eyes: PERRL, conjunctivae normal, anicteric sclerae Neck: trachea midline, no thyromegaly Respiratory: normal respiratory effort, lungs clear to auscultation Cardiovascular: Rate/Rhythm: regular rate Gastrointestinal (Abdomen): Percussion/Palpation: abdomen soft Results & Data Vital Signs (Past 12 Hours) Vital Signs Temp Pulse Resp BP Pulse Ox 07/29/18 07:26 36.6 C 74 16 108/72 96 07/28/18 23:00 36.7 C 73 22 100/64 95
[2018-07-29] MEDS: MoRPHine SULFATE 2 MG/ML CARP IV PRN ×3 (08:42→22:09)
[2018-07-29] MEDS: CARBAMAZEPINE 100 MG CHEW TAB PO SCH ×3 (08:45→21:10)
[2018-07-29] MEDS: CITALOPRAM 20 MG TAB PO SCH (08:45)
[2018-07-29] MEDS: PANTOprazole 40 MG TAB PO SCH (08:45)
[2018-07-29] MEDS: GABAPENTIN 300 MG CAP PO SCH ×3 (08:45→21:11)
[2018-07-29] MEDS: POLYETHYLENE (MIRALAX) 17 GM PACK PO SCH ×2 (08:46→17:23)
[2018-07-29 11:15] LABS: Hematocrit (blood only) 41.6 % (42-52); Hemoglobin 14.2 g/dL (14.0-18.0)
--- NOTE | 2018-07-29 16:56 | Hospitalist Progress Note ---
Date of Service July 29, 2018 Assessment & Plan (1) Hematochezia: Resolved, no further episode, scheduled for colonoscopy tomorrow Presented with complaint of bright red blood per rectum-2 episode on /4 -5 episodes on Monday Vitals and H&H remained stable No further episode of GI bleed/no bowel movement since admission CT abdomen pelvis shows no acute pathology/colonic diverticulosis without any evidence of diverticulitis Appreciate input from GI (2) GI bleed: No further episodes since admission H&H stays stable Presented with bright red blood per rectum No report of dark stool or melena Patient has been taking Motrin/ibuprofen alternately 4 to 5 tablets a day-for joint/arthritic pain(history of psoriatic arthritis) No hematemesis noted, H&H stayed stable No GI bleeding since admission Patient was initially started with IV Protonix drip, will be discontinued as per GI recommendation Ordered p.o. Protonix daily Patient is counseled to avoid NSAIDs Can take Tylenol as needed for pain Scheduled for colonoscopy EGD on Monday CODE STATUS: Full code DVT prophylaxis: No risks, patient is ambulatory at baseline order for SCD and teds Disposition: Plan to discharge home possible Monday after colonoscopy if patient remains clinically stable Subjective No bright red blood per rectum Patient had multiple bowel movement with bowel prep, still complains of abdominal pain bloated, with sharp pain on left lower quadrant No nausea vomiting, No bright red blood per rectum Physical Exam Constitutional: WD/WN, vitals as above no acute distress Eyes: PERRL, conjunctivae normal, anicteric sclerae ENMT: external ear and nose normal, oropharynx normal Neck: trachea midline, no thyromegaly Respiratory: normal respiratory effort, lungs clear to auscultation Cardiovascular: RRR, no murmur, no edema Gastrointestinal (Abdomen): Inspection/Auscultation: abdomen normal to inspection and normal bowel sounds; abdomen not distended Percussion/Palpation: abdomen soft; no guarding Musculoskeletal: no cyanosis or clubbing, extremities motor strength 5/5 Skin: no rashes, warm and dry Neurologic: PERRL, EOMI, accommodation nl, no face palsy, no dysarthria Psychiatric: A+Ox3, euthymic affect Results & Data Vital Signs (Past 12 Hours) Vital Signs Temp Pulse Resp BP Pulse Ox 07/29/18 15:36 37.1 C 67 20 121/80 92 07/29/18 11:45 36.9 C 94 H 16 147/96 H 98 07/29/18 07:26 36.6 C 74 16 108/72 96 (1) GI bleed GI bleed type/associated pathology: unspecified gastrointestinal hemorrhage type Qualified Code(s): K92.2 - Gastrointestinal hemorrhage, unspecified
[2018-07-29] MEDS: PRAZOSIN HCL 1 MG CAP PO SCH (21:11)
[2018-07-30] MEDS: POLYETHYLENE (MIRALAX) 17 GM PACK PO SCH (02:05)
[2018-07-30] MEDS: MoRPHine SULFATE 2 MG/ML CARP IV PRN ×2 (05:10→14:18)
[2018-07-30 06:01] LABS: Hematocrit (blood only) 38.4 % (42-52); Hemoglobin 13.3 g/dL (14.0-18.0); Mean Corpuscular Hgb Conc 34.6 g/dL (32-36); Mean Corpuscular Volume 89.5 fL (80-100); Mean Platelet Volume 9.2 fL (7.4-10.4); Platelet Count 178 K/uL (130-400); RDW Coefficient of Variation 12.8 % (11.5-14.5); RDW Standard Deviation 41.3 fL (36.4-46.3); Red Blood Count 4.29 M/uL (4.7-6.1); White Blood Count 6.58 K/uL (4.8-10.8)
[2018-07-30 06:38] LABS: BUN Creatinine Ratio 12.9 (10-20); Calcium 8.8 mg/dl (8.5-10.1); Creatinine Clr Calc Pharmacy 103.8 ml/min; Est GFR (African American) 98.9; Est GFR (Non-African American) 85.3; Potassium 3.9 mmol/L (3.5-5.1)
--- NOTE | 2018-07-30 08:50 | History & Physical Bridge Note ---
Date of Service July 30, 2018 I have seen and examined the patient and discussed the management with KUSHAL Rojas No acute distress Abdomen- slight protuberant, soft nt nd Pulm- normal excursion Neuro: Cn's 2-12 intact stable hgb and other labs Colon for evaluation of self-limited hematochezia that has stopped currently - last episode Monday afternoon. On no blood thinners but takes a lot of Advil reportedly. History & Physical Bridge Note I have examined the patient, reviewed the History & Physical and in the interval since the performance of the History & Physical I have noted the following changes of clinical significance: no changes noted Pt followed for hematochezia. He was given bowel prep for colonoscopy today. Has been NPO after midnight. VS, labs reviewed. Blood ct stable, no acute events overnight. On exam: - AAOx3, in no acute distress - HRR no murmur or gallops - CTA bilateral lungs - Abd soft, TTP mostly on L side, BS hyperactive - No edema noted GI will give further recs after colonoscopy is completed.
--- NOTE | 2018-07-30 12:04 | Anesthesiology Consultation ---
Date of Service July 30, 2018 History Surgery Operation Date: 07/30/18 09:45 Proposed Procedures p Colonoscopy Dr. Radha Garcia M.D. Height/Weight Height: 5 ft 11 in Weight: 93.5 kg Allergies Allergy/AdvReac Type Severity Reaction Status Date / Time bee venom protein (honey bee) Allergy Severe ANAPHYLACTIC Verified 07/27/18 19:11 REACTION-HAS EPIPEN AVAILABLE tuna oil Allergy Intermediate SWELLING, Verified 07/27/18 19:11 HIVES Medications Home Medications Medication Instructions Recorded Confirmed Last Taken carbamazepine 300 mg PO TID 07/27/18 07/27/18 07/27/18 citalopram 40 mg PO QAM 07/27/18 07/27/18 07/27/18 gabapentin 300 mg PO TID 07/27/18 07/27/18 Unknown ibuprofen 200 mg PO Q6H PRN 07/27/18 07/27/18 07/27/18 04:00 800mg prazosin 2 mg PO HS 07/27/18 07/27/18 07/26/18 Active Medications Generic Name Dose Route Start Last Admin Trade Name Freq PRN Reason Stop Dose Admin Acetaminophen 650 mg 07/28/18 00:43 07/29/18 12:29 Tylenol PO 08/27/18 00:42 650 mg Q4H PRN Administration Pain or Fever Carbamazepine 300 mg 07/28/18 09:00 07/29/18 21:10 Tegretol PO 08/27/18 08:59 300 mg TID SHALINI Administration Citalopram Hydrobromide 40 mg 07/28/18 09:00 07/29/18 08:45 Celexa PO 08/27/18 08:59 40 mg QAM SHALINI Administration Gabapentin 300 mg 07/28/18 09:00 07/29/18 21:11 Neurontin PO 08/27/18 08:59 300 mg TID SHALINI Administration Morphine Sulfate 2 mg 07/29/18 17:17 07/30/18 05:10 Morphine Sulfate IV 08/11/18 00:42 2 mg Q6 PRN Administration Pain Pantoprazole Sodium 40 mg 07/29/18 09:00 07/29/18 08:45 Protonix PO 08/28/18 08:59 40 mg QAM SHALINI Administration Prazosin HCl 2 mg 07/28/18 21:00 07/29/18 21:11 Prazosin Hcl PO 08/27/18 20:59 2 mg HS SHALINI Administration NPO Date Last Intake of Fluids: 07/30/18 Time Last Intake of Fluids: 02:00 Date Last Intake of Solids: 07/28/18 Time Last Intake of Solids: 16:00 Past Medical History Medical History Pseudoseizure (Acute) Seizure (Acute) Seizure disorder in , delivered with condition (Acute) Asthma Sports induced Bronchitis Two weeks ago finished course of steroids, improved Past Surgical History Surgical History History of cardiac cath Social History Smoking Status: Current some day smoker tobacco type: smokeless tobacco Smoking cigarettes per day: 3 Do You Dip or Chew Tobacco: Yes Hx Alcohol Use: Yes Alcohol type: beer, wine and hard liquor alcohol intake frequency: a few times a week Hx Substance Use: No Physical Exam Vital Signs Last Vital Signs Temp 36.7 C 07/30/18 11:50 Pulse 67 07/30/18 11:50 Resp 16 07/30/18 11:50 BP 140/82 07/30/18 11:50 Pulse Ox 98 07/30/18 11:50 Testing Laboratory Results 07/30/18 05:34 07/30/18 05:34 PT 10.3 Seconds (9.0-12.0) 07/28/18 08:14 INR 1.0 (0.9-1.1) 07/28/18 08:14 APTT 23.9 Seconds (21.0-31.0) 07/28/18 08:14 Urine Color Yellow 07/27/18 19:08 Urine Appearance Clear (Clear) 07/27/18 19:08 Urine pH 5.5 (4.5-7.5) 07/27/18 19:08 Ur Specific [place] 1.025 (1.000-1.030) 07/27/18 19:08 Urine Protein Negative (Negative) 07/27/18 19:08 Urine Glucose (UA) Negative (Negative) 07/27/18 19:08 Urine Ketones Negative (Negative) 07/27/18 19:08 Urine Nitrite Negative (Negative) 07/27/18 19:08 Ur Leukocyte Esterase Negative (Negative) 07/27/18 19:08
[2018-07-30] MEDS ORDERED: PROPOFOL IV EMULSION 10 MG/ML 20 ML VIAL IV ONE (12:06)
[2018-07-30] MEDS ORDERED: LIDOCAINE HCL 2% 2 ML VIAL/AMP(20MG/ML) INFIL ONE (12:06)
[2018-07-30] MEDS ORDERED: ALBUTEROL HFA INHALER 8.5 GM ONE (12:12)
--- NOTE | 2018-07-30 12:41 | GI REPORT ---
Patient Name: Suraj Silva Procedure Date: 07/30/2018 12:05 PM Date of : 1975 Admit Type: Inpatient Age: 43 Gender: Male Attending MD: Mayuri aGrcia M.d. Procedure: Colonoscopy Providers: Mayuri Garcia M.d. Referring MD: Aldo Brooke Indications: Hematochezia Medicines: Propofol per Anesthesia Complications: No immediate complications. Estimated Blood Loss: Estimated blood loss was minimal. Procedure: Pre-Anesthesia Assessment: - Patient identification and proposed procedure were verified prior to the procedure by the physician, the nurse and the anesthesiologist. The procedure was verified in the pre-procedure area. - Prior to the procedure, a History and Physical was performed, and patient medications, allergies and sensitivities were reviewed. The patient's tolerance of previous anesthesia was reviewed. - The risks and benefits of the procedure and the sedation options and risks were discussed with the patient. All questions were answered and informed consent was obtained. - ASA Grade Assessment: II - A patient with mild systemic disease. After I obtained informed consent, the scope was passed under direct vision. Throughout the procedure, the patient's blood pressure, pulse, and oxygen saturations were monitored continuously. The scope was introduced through the anus and advanced to the terminal ileum. The colonoscopy was performed without difficulty. The patient tolerated the procedure well. The quality of the bowel preparation was adequate to identify polyps 6 mm and larger in size. Findings: The examined colon appeared normal. Localized mild inflammation characterized by erythema was found in the descending colon. Biopsies were taken with a cold forceps for histology. Verification of patient identification for the specimen was done by the physician and nurse using the patient's name and medical record number. Faint internal hemorrhoids were found during retroflexion. Impression: - The examined colon appeared normal. - Localized mild inflammation was found in the descending colon. Biopsied. - Faint internal hemorrhoids Recommendation: - Await pathology results. - Bleeding could have been outlet in origin. Dixie Walters M.d. 07/30/2018 12:40:55 PM This report has been signed electronically. Note Initiated On: 07/30/2018 12:05 PM Number of Addenda: 0 I attest to the content of the Intraoperative Record and orders documented therein, exceptions below {[id number]}
[2018-07-30] MEDS: CARBAMAZEPINE 100 MG CHEW TAB PO SCH (14:17)
[2018-07-30] MEDS: GABAPENTIN 300 MG CAP PO SCH (14:17)
[2018-07-30] MEDS: CITALOPRAM 20 MG TAB PO SCH (14:17)
[2018-07-30] MEDS: PANTOprazole 40 MG TAB PO SCH (14:17)
--- NOTE | 2018-07-30 14:24 | Anesthesiology Progress Note ---
Date of Service July 30, 2018 Anesthesia Post Procedure Vital Signs Vital Signs: Temp Pulse Resp BP Pulse Ox 07/30/18 13:39 36.6 C 61 18 112/75 97 07/30/18 13:10 61 16 113/69 97 07/30/18 12:55 62 16 104/71 97 07/30/18 12:40 75 16 122/78 97 07/30/18 11:50 36.7 C 67 16 140/82 98 07/30/18 08:43 101/66 07/30/18 07:27 36.7 C 68 18 88/50 L 95 07/29/18 23:00 36.6 C 72 17 116/76 94 07/29/18 15:36 37.1 C 67 20 121/80 92 Pain Intensity Left Abdomen: Pain Intensity: 4 Transfer of Care Handoff Completed per policy Notes Mental Status: alert / awake / arousable and participated in evaluation Patient Amnestic to Procedure: Yes Nausea / Vomiting: adequately controlled Pain: adequately controlled Airway Patency, RR, SpO2: stable & adequate BP & HR: stable & adequate Hydration State: stable & adequate Anesthetic Complications: no major complications apparent and Pt Satisfied with anesthetic care
--- NOTE | 2018-07-30 15:25 | Hospitalist Progress Note ---
Date of Service July 30, 2018 Assessment & Plan (1) Hematochezia: Resolved, no further episode, scheduled for colonoscopy tomorrow Presented with complaint of bright red blood per rectum-2 episode on /4 -5 episodes on Monday Vitals and H&H remained stable No further episode of GI bleed/no bowel movement since admission CT abdomen pelvis shows no acute pathology/colonic diverticulosis without any evidence of diverticulitis Appreciate input from GI Colonoscopy: 07/30/2018 Examined colon colonoscopy today: Appeared normal Localized mild inflammation characterized by erythema was found in the descending colon. Biopsies were taken with a cold forceps for histology. Faint internal hemorrhoids were found during retroflex Diet ordered, tolerating well, stable to be discharged home Today team will update patient once pathology of the biopsy returns (2) GI bleed: No further episodes since admission H&H stays stable Presented with bright red blood per rectum-possible secondary to internal hemorrhoids (noted in colonoscopy No report of dark stool or melena Patient has been taking Motrin/ibuprofen alternately 4 to 5 tablets a day-for joint/arthritic pain(history of psoriatic arthritis) No hematemesis noted, H&H stayed stable No GI bleeding since admission Ordered p.o. Protonix daily Patient is counseled to avoid NSAIDs Can take Tylenol as needed for pain That is post colonoscopy today, report outlined as above CODE STATUS: Full code DVT prophylaxis: No risks, patient is ambulatory at baseline order for SCD and teds Disposition: Stable to be discharged home today Physical Exam Constitutional: WD/WN, vitals as above no acute distress Eyes: PERRL, conjunctivae normal, anicteric sclerae ENMT: external ear and nose normal, oropharynx normal Neck: trachea midline, no thyromegaly Respiratory: normal respiratory effort, lungs clear to auscultation Cardiovascular: RRR, no murmur, no edema Gastrointestinal (Abdomen): Inspection/Auscultation: abdomen normal to inspection and normal bowel sounds; abdomen not distended Percussion/Palpation: abdomen soft; no guarding Musculoskeletal: no cyanosis or clubbing, extremities motor strength 5/5 Skin: no rashes, warm and dry Neurologic: PERRL, EOMI, accommodation nl, no face palsy, no dysarthria Psychiatric: A+Ox3, euthymic affect Results & Data Vital Signs (Past 12 Hours) Vital Signs Temp Pulse Resp BP Pulse Ox 07/30/18 13:39 36.6 C 61 18 112/75 97 07/30/18 13:10 61 16 113/69 97 07/30/18 12:55 62 16 104/71 97 07/30/18 12:40 75 16 122/78 97 07/30/18 11:50 36.7 C 67 16 140/82 98 07/30/18 08:43 101/66 07/30/18 07:27 36.7 C 68 18 88/50 L 95 (1) GI bleed GI bleed type/associated pathology: unspecified gastrointestinal hemorrhage type Qualified Code(s): K92.2 - Gastrointestinal hemorrhage, unspecified
--- NOTE | 2018-07-30 16:16 | Discharge Summary ---
Date of Service July 30, 2018 Admission HPI Per Admitting Provider The patient is a 43-year-old male who presents with 48 hours of intermittent hematochezia. The patient states he was is in his usual state of health until when he began to develop bright red blood with bowel movements. He notes having a significant amount of blood with stool only during bowel movements. Occasionally he is noted some clots with the stool. Over the night the patient has had no recurrence of his hematochezia. There is no family history of stomach cancer colon cancer esophageal cancer. The patient does recall having an attempt at a colonoscopy about 10 years ago for symptoms of abdominal discomfort. He notes at that examination was incomplete. Unfortunately we have no records available with regard to this study. The patient's surgical history is notable for a cholecystectomy which was performed approximately 15 years ago for complications associated with abdominal discomfort. The patient denies having dark sticky stool or abdominal discomfort today. Principal Diagnosis Bright red blood per rectum Discharge Exam Constitutional WD/WN, vitals as above no acute distress Eyes PERRL, conjunctivae normal, anicteric sclerae ENMT external ear and nose normal, oropharynx normal Neck trachea midline, no thyromegaly Respiratory normal respiratory effort, lungs clear to auscultation Cardiovascular RRR, no murmur, no edema Gastrointestinal (Abdomen) Inspection/Auscultation: abdomen normal to inspection and normal bowel sounds; abdomen not distended Percussion/Palpation: abdomen soft; no guarding Musculoskeletal no cyanosis or clubbing, extremities motor strength 5/5 Skin no rashes, warm and dry Neurologic PERRL, EOMI, accommodation nl, no face palsy, no dysarthria Psychiatric A+Ox3, euthymic affect Discharge Data Allergies Allergy/AdvReac Type Severity Reaction Status Date / Time bee venom protein (honey bee) Allergy Severe ANAPHYLACTIC Verified 07/27/18 19:11 REACTION-HAS EPIPEN AVAILABLE tuna oil Allergy Intermediate SWELLING, Verified 07/27/18 19:11 HIVES Consultations 07/28/18 08:00 Consult Gastroenterology Routine Procedures Performed Operation Date: 07/30/18 09:45 Actual Procedures p Colonoscopy Biopsy Cytology - Mayuri Garcia M.D. Ordered Studies 07/27/18 18:55 CT abd pelvis IV con only Stat Hospital Course (1) Hematochezia: Resolved, no further episode, scheduled for colonoscopy tomorrow Presented with complaint of bright red blood per rectum-2 episode on /4 -5 episodes on Monday Vitals and H&H remained stable No further episode of GI bleed/no bowel movement since admission CT abdomen pelvis shows no acute pathology/colonic diverticulosis without any evidence of diverticulitis Appreciate input from GI Colonoscopy: 07/30/2018 Examined colon colonoscopy today: Appeared normal Localized mild inflammation characterized by erythema was found in the descending colon. Biopsies were taken with a cold forceps for histology. Faint internal hemorrhoids were found during retroflex Diet ordered, tolerating well, stable to be discharged home Today team will update patient once pathology of the biopsy returns (2) GI bleed: No further episodes since admission H&H stays stable Presented with bright red blood per rectum-possible secondary to internal hemorrhoids (noted in colonoscopy No report of dark stool or melena Patient has been taking Motrin/ibuprofen alternately 4 to 5 tablets a day-for joint/arthritic pain(history of psoriatic arthritis) No hematemesis noted, H&H stayed stable No GI bleeding since admission Ordered p.o. Protonix daily Patient is counseled to avoid NSAIDs Can take Tylenol as needed for pain That is post colonoscopy today, report outlined as above CODE STATUS: Full code DVT prophylaxis: No risks, patient is ambulatory at baseline order for SCD and teds Disposition: Stable to be discharged home today Total Time Total Time Spent Total Time Spent (In Minutes): Approximate 45 minutes Total Time Includes: Examination of the Patient, Discharge Planning and Medication Reconciliation Discharge Plan Discharge Items Patient Disposition: Home - Self-Care Reason For Visit: GI BLEED Discharge Diagnosis: Bright red blood per rectum Discharge Goals: Decrease discomfort, Diagnostic testing and Therapeutic intervention Activity: Resume your previous activity Non-emergency contact: Primary Care Provider Call non-emergency contact if: you have any medication questions Diet: Regular Addtl Provider Instructions: DO NOT TAKE ASPIRIN/ADVIL/ALEVE/IBUPROFEN/NAPROXEN/MOTRIN-AVOID THESE GROUP OF DRUGS/[id number] PAIN MEDICATIONS RELATED TO NSAID -CAN CAUSE SIGNIFICANT INFLAMMATION/IRRITATION IN YOUR STOMACH AND COLON LEADING TO BLEEDING Hospital follow-up with Dr. Raghav Strong at [facility] on 08/03/2018 at 2:45 PM Drink Plenty of water , fruits and vegetables take Miralax 1 heaped table spoonful in 8 oz glass of water /beverage daily if needed to prevent constipation Prescriptions: Continued citalopram 20 mg tablet 40 mg PO QAM RF: 0 prazosin 2 mg capsule 2 mg PO HS RF: 0 carbamazepine 300 mg capsule, ER multiphase 12 hr 300 mg PO TID RF: 0 gabapentin 300 mg capsule 300 mg PO TID RF: 0 Discontinued ibuprofen 200 mg Tablet 200 mg PO Q6H PRN (Reason: Pain) RF: 0 Stand-Alone Forms: [facility], Work/School Release (Inpt) Discharge Orders: Discharge Order (Routine); Ordered 07/30/18 Ordered By: Sindi Bazan Admission Data Admit Date/Time: 07/28/18 11:27 Attending Provider: Sindi Bazan Admit Provider: Jesús Swain Primary Care Provider: Aldo Brooke Other Providers: Nidia Saab ; Livia Cedeno ; Leanna Siegel ; Brian Zarate ; Raghav Felton ; James Menendez ; Lvoe Mccurdy ; Grey Barton ; Deon Powell ; Alicia Mathias ; Mayra Cano ; Brenda Grande ; Mayuri Garcia ; Marta Gibson Service: Medical Other Interventions: Discharge Summary Assessment (RN) Last Done: 07/30/18 15:28 DC Date/Time DO NOT enter until pt leaves facility: 07/30/18 16:14
== END 2018-07-30 16:14 | disposition home or self-care (01) | DRG 395 ==
LOC: ED 17:51 → 2N 17:51